=== PATIENT | female | born 1965 | race Caucasian/White ===

== ENCOUNTER 2018-10-02 07:09 | Outpatient (CLI) | payer OTHER, SELFPAY ==
[2018-10-02 07:32] LABS: HCT 35.6 % (36.0-46.0)
[2018-10-03 09:57] LABS: FSH 35.7 mIU/ml
== END 2018-10-02 07:29 ==
PROVIDERS: PCP Family Medicine; Visit Provider Obstetrics & Gynecology
DX: D64.9 Anemia, unspecified (principal); N92.0 Excessive and frequent menstruation with regular cycle; D25.9 Leiomyoma of uterus, unspecified
CPT/HCPCS: 36415; 83001; 84443; 85014; 85018

== ENCOUNTER 2019-01-15 07:44 | Outpatient (CLI) | payer OTHER, SELFPAY ==
--- NOTE | 2019-01-15 13:20 | DI.MAMMO_ITS ---
SYMPTOM/DIAGNOSIS: SCREENING, Z12.31 MAMMOGRAMS: Mammograms were interpreted according to the usual protocol including computer analysis with CAD system, tomosynthesis and C view imaging. Comparison is with the prior examinations. No suspicious masses or microcalcifications are seen. There has been no significant change in size of the well-circumscribed nodule in the retroareolar region of the right breast. The skin and axillae are unremarkable. IMPRESSION: No evidence for malignancy. Yearly mammography is recommended. Category 2. Breast density C. MQSA ASSESSMENT OF FINDINGS: Negative with benign findings. Category 2. Patient will receive a letter notifying them of these results. Bi-RADS category C. The breasts are heterogeneously dense, which may obscure small masses.
== END 2019-01-15 08:04 ==
PROVIDERS: PCP Family Medicine; Visit Provider Obstetrics & Gynecology
DX: Z12.31 Encounter for screening mammogram for malignant neoplasm of breast (principal); N60.81 Other benign mammary dysplasias of right breast
CPT/HCPCS: 77063; 77067

== ENCOUNTER 2019-04-09 07:17 | Outpatient (CLI) | payer OTHER, SELFPAY ==
[2019-04-09 11:17] LABS: C-Reactive Protein 0.15 mg/dL (0.0-0.3); TSH (W/Ref FT4) 1.35 uIU/mL (0.358-3.74)
[2019-04-09 11:44] LABS: ESR 18 MM/HR (0-30)
[2019-04-10 14:55] LABS: ANA Interpretation Positive (NEGAT); ANA Titer Pattern 1:320 Speckled
== END 2019-04-09 07:37 ==
PROVIDERS: PCP Family Medicine; Visit Provider Nurse Practitioner Family
DX: M25.50 Pain in unspecified joint (principal); E03.9 Hypothyroidism, unspecified
CPT/HCPCS: 36415; 85652; 84443; 86038; 86140

== ENCOUNTER 2019-06-21 07:24 | Outpatient (CLI) | payer OTHER, SELFPAY ==
[2019-06-21 09:05] LABS: Abs Immature Grans 0.01 k/cumm (0.0-0.09); Absolute Basophil Count 0.02 k/cumm (0.0-0.2); Absolute Eosinophil Count 0.08 k/cumm (0.0-0.7); Absolute Lymphocyte Count 2.21 k/cumm (1.2-3.4); Absolute Monocyte Count 0.33 k/cumm (0.11-0.7); Basophils % 0.3; Eosinophils % 1.4; HCT 39.8 % (36.0-46.0); HGB 13.1 g/dL (12.0-15.5); Immature Grans % 0.2; Lymphocytes % 37.8; Mean Corp. HGB Concentration 32.9 g/dL (32.0-36.0); Mean Platelet Volume 11.4 fL (8.0-11.0); Monocytes % 5.6; Neutrophils % 54.7; Platelet Count 211 x1000/uL (130-400); RBC 4.68 m/cumm (4.00-5.20); RBC Distribution Width 12.6 % (11.7-14.6); White Blood Cell Count 5.85 k/cumm (4.4-10.8)
[2019-06-21 10:16] LABS: ALT 29 U/L (12-78); AST 19 U/L (15-37); Albumin 4.2 g/dL (3.4-5.0); Alkaline Phosphatase 108 U/L (46-116); BUN 12 mg/dL (7-18); Bilirubin, Total 0.4 mg/dL (0.2-1.0); CREATININE 0.89 mg/dL (0.55-1.02); Calcium 9.5 mg/dL (8.5-10.1); Chloride 104 mmol/L (98-107); Glucose 95 mg/dL (70-100); Potassium 4.2 mmol/L (3.5-5.1); Sodium 141 mmol/L (136-145); TSH (W/Ref FT4) 2.65 uIU/mL (0.36-3.74)
[2019-06-21 17:10] LABS: T3,Free 3.5 pg/ml (2.8-5.3)
[2019-06-22 09:59] LABS: Thyroglobulin Antibody 430 U/mL (<61)
[2019-06-22 12:03] LABS: Lyme Ab w Rflx to Lyme Confirm Positive
[2019-06-22 13:08] LABS: ANA Interpretation Positive (NEGAT); ANA Titer Pattern 1:320 Speckled
[2019-06-22 16:59] LABS: T3, Total 125 ng/dl (97-169)
[2019-06-25 15:10] LABS: IgG Band(s) SEE COMMENTS kDa; IgG Immunoblot Negative; IgM Band(s) SEE COMMENTS kDa; IgM Immunoblot Negative; Immunoblot Interpretation SEE COMMENTS
[2019-06-26 12:39] LABS: RNP Ab, IgG 5.1 Units (<20); SS-B (La) Ab, IgG 12.5 Units (<20); Sm (Smith) Ab, IgG 3.5 Units (<20)
[2019-06-26 14:07] LABS: dsDNA Ab, IgG 12.8 IU/mL (<30)
[2019-06-28 08:33] LABS: SS-A Antibody 4.6 Units
== END 2019-06-21 07:44 ==
PROVIDERS: PCP Family Medicine; Visit Provider Family Medicine
DX: M25.50 Pain in unspecified joint (principal); R63.5 Abnormal weight gain; R76.8 Other specified abnormal immunological findings in serum
CPT/HCPCS: 36415; 80053; 82533; 86617; 84235; 84443; 84480; 84481; 85025; 86038; 86225; 86235; 86618; 86800

== ENCOUNTER 2019-08-03 10:43 | Outpatient (CLI) | payer OTHER, SELFPAY ==
[2019-08-03 13:14] LABS: Vitamin B12 569 pg/mL (193-986)
[2019-08-03 13:19] LABS: Folate > 20.0 ng/mL (8.6-20.0)
[2019-08-03 13:36] LABS: Creatine Kinase 120 U/L (26-192)
[2019-08-03 16:52] LABS: ESR 16 mm/hr (0-30)
[2019-08-06 09:13] LABS: Cyclic Citrullinated Peptide <2.5 U/mL (<5.0)
[2019-08-06 09:27] LABS: Factor 8 Assay 137 % (50-150)
[2019-08-06 10:47] LABS: Rheumatoid Factor 8 IU/mL (<12.5)
[2019-08-06 11:52] LABS: Homocysteine 13.1 umol/L (4.5-12.4)
[2019-08-07 12:57] LABS: Thiamine (Vitamin B1), WB 128 nmol/L (70-180)
[2019-08-08 11:13] LABS: Protein C, Functional 123 % (71-199)
[2019-08-08 13:47] LABS: Pyridoxal 5-Phosphate (PLP), P 14 mcg/L (5-50)
== END 2019-08-03 11:03 ==
PROVIDERS: Nurse Practitioner Family; PCP Family Medicine; Visit Provider Psychiatry & Neurology Neurology
DX: M25.50 Pain in unspecified joint (principal); R53.82 Chronic fatigue, unspecified; M79.10 Myalgia, unspecified site; R29.898 Other symptoms and signs involving the musculoskeletal system; L65.8 Other specified nonscarring hair loss
CPT/HCPCS: 36415; 82550; 83090; 85652; 86147; 86200; 82088; 82607; 82746; 83735; 84207; 84425; 84550; 85240; 85303; 86431